=== PATIENT | female | born 1960 | race Caucasian/White ===

== ENCOUNTER → 2018-05-12 | Day surgery (SDC) | payer BC ==
--- NOTE | 2018-05-13 18:58 | PATH ---
Cytology Non-Gynecological Report Patient Name: ANA MARIA GARCIA [facility]. Rec. #: [id number] /Age/Gender: 1960 (Age: 58) / F Account: [id number] Location: RADIOLOGY INTER Taken: 05/12/2018 Received: 05/12/2018 Reported: 05/13/2018 Physicians: Silas Jimenez M.D. Specimen(s) Received RIGHT THYROID Clinical History Right thyroid nodule, 2.45 x 1.09 x 1.81 cm Final Diagnosis THYROID, RIGHT, FINE NEEDLE ASPIRATION: SATISFACTORY FOR EVALUATION. B[place] CLASS II: BENIGN. CYTOLOGIC FINDINGS ARE CONSISTENT WITH A BENIGN FOLLICULAR NODULE. SMALL FOLLICULAR CELLS DISPERSED SHEETS AND AGGREGATES IN A BACKGROUND OF ABUNDANT COLLOID PRESENT. Electronically Signed Lashawn Krueger M.D. Gross Description Received are eight direct smears, four of which are air-dried and Diff-Quik stained, and four of which are alcohol fixed and Pap stained. Also received is 20 ml of bloody formalin from which one cellblock is prepared.
== END | disposition home or self-care (01) ==
LOC: JRADIR 10:10
PROVIDERS: ATTEND Internal Medicine Endocrinology, Diabetes & Metabolism
PROC: 0G9H3ZX Drainage of Right Thyroid Gland Lobe, Percutaneous Approach, Diagnostic (ICD-10-PCS; principal; 2018-05-12)
DX: E04.1 Nontoxic single thyroid nodule (principal)
CPT/HCPCS: 76942; 88173; 88305-TC

== ENCOUNTER 2022-07-25 12:13 | Emergency (ER) | payer BC ==
[2022-07-25 12:32] VITALS: BP 146/89; PULSE 98; RESP 20; TEMP 98; BMI 25.6
[2022-07-25] MEDS ORDERED: PHENAZOPYRIDINE HCL 100 MG TABLET (FP) PO ONE (13:04)
[2022-07-25] MEDS ORDERED: CEPHALEXIN MONOHYDRATE 500 MG CAPSULE (UD) PO ONE (13:04)
[2022-07-25] MEDS ORDERED: PHENAZOPYRIDINE HCL 100 MG TABLET (FP) ONE (13:14)
[2022-07-25] MEDS ORDERED: CEPHALEXIN MONOHYDRATE 500 MG CAPSULE (UD) ONE (13:14)
[2022-07-25 14:22] LABS: EPI CELLS 14 /uL (0-25.1); HYALINE CASTS 1 /uL (0-3.1); URINE APPEARANCE CLOUDY; URINE BILIRUBIN NEGATIVE (NEGATIVE); URINE COLOR ORANGE; URINE GLUCOSE (UA) NEGATIVE (NEGATIVE); URINE KETONE NEGATIVE (NEGATIVE); URINE LEUK ESTERASE 1+ (NEGATIVE); URINE NITRITE NEGATIVE (NEGATIVE); URINE PROTEIN 3+ (NEGATIVE); URINE RBC 22 /uL (0-23.9); URINE UROBILINOGEN 0.2 mg/dL (0.2-1.0); URINE WBC 1 /uL (0-25.8)
[2022-07-25 14:40] LABS: URINE BACTERIA 79 /uL (0-1359)
== END 2022-07-25 13:17 | disposition home or self-care (01) ==
LOC: JERFT 12:13
DX: N30.01 Acute cystitis with hematuria (principal)
CPT/HCPCS: 81003; 87086; 87186; 99283-25